=== PATIENT | male | born 1950 | race Two or more races ===

== ENCOUNTER 2020-01-24 09:30 | Outpatient (CLI) | payer OTHER | END 2020-01-24 09:51 | disposition home or self-care (01) | LOC: MRI 09:30 | PROVIDERS: ATTEND Neurological Surgery | DX: M96.1 Postlaminectomy syndrome, not elsewhere classified (principal); M48.061 Spinal stenosis, lumbar region without neurogenic claudication | CPT/HCPCS: 72110; 72158; A9575 ==